=== PATIENT | female | born 1990 | race African-American/Black ===

== ENCOUNTER 2017-12-17 15:44 | Emergency (ER) | payer SELFPAY ==
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
[2017-12-17] MEDS ORDERED: NS 0.9% 1000 ML* 1,000 ML IV ONE (17:31)
[2017-12-17] MEDS ORDERED: PROCHLORPERAZINE INJ 5 MG/ML 2 ML VIAL IV PRN (17:31)
[2017-12-17] MEDS ORDERED: diPHENhydraMINE IV* 25 MG in NS 0.9% 50 ML* 50 ML IVPB ONE (17:31)
[2017-12-17] MEDS ORDERED: Ketorolac INJ* 30 MG/ML 1 ML VIAL IV PUSH ONE (17:32)
[2017-12-17] MEDS ORDERED: Dexamethasone IV* 4 MG/ML 1 ML (4 MG) IV SLOW PU ONE (17:33)
--- NOTE | 2017-12-17 18:27 | RAD ---
EXAM: CT Head Without Intravenous Contrast CLINICAL HISTORY: 27 years old, female; Pain; Headache; Headache not specified TECHNIQUE: Axial computed tomography images of the head/brain without intravenous contrast. All CT scans at this facility use at least one of these dose optimization techniques: automated exposure control; mA and/or kV adjustment per patient size (includes targeted exams where dose is matched to clinical indication); or iterative reconstruction. COMPARISON: No relevant prior studies available. FINDINGS: Brain: Unremarkable. No hemorrhage. No significant white matter disease. No edema. Ventricles: Unremarkable. No ventriculomegaly. Bones/joints: Unremarkable. No acute fracture. Soft tissues: Unremarkable. Sinuses: Unremarkable as visualized. No acute sinusitis. Mastoid air cells: Unremarkable as visualized. No mastoid effusion. IMPRESSION: No acute intracranial abnormality.
[2017-12-17 19:27] VITALS: BP 134/94
== END 2017-12-17 19:11 | disposition home or self-care (01) ==
LOC: ED 15:44
DX: H53.8 Other visual disturbances (principal); R51 Headache; F17.210 Nicotine dependence, cigarettes, uncomplicated
CPT/HCPCS: 70450; 96374; 96375; 99282

== ENCOUNTER 2019-04-18 15:15 | Emergency (ER) | payer SELFPAY ==
--- NOTE | 2019-04-18 15:50 | ED ---
Complex/Multi-Sys Presentation - HPI Summary HPI Summary: Pt. is a 29 y.o female who presents to the ER for complaints of "electrical storms in my brain." Pt. states she has been having these symptoms x one year. Pt. seen in ED a year ago and had a negative brain CT. Pt. states she has been experiencing episodes where her vision goes black and she feels she is going to pass out. Pt. states she is able to bring herself back by using her healing crystals. Pt. notes intermittent tingling to brain, tongue and hands. Also notes pressure behind her eyes. Pt. notes hx of drug use and pt. believes she used coke 2 months ago. Pt. otherwise denies recent fever, travel, abd. pain, V/ D, urinary sxs. Past hx of depression and was admitted to [facility] in 2012. Pt. currently not taking any rx medications and does not have a PCP. Sxs are moderate in severity. No current modifying factors. - History Of Current Complaint Chief Complaint: EDNeurologicalDeficit Time Seen by Provider: 04/18/19 15:31 Hx Obtained From: Patient - Allergies/Home Medications Allergies/Adverse Reactions: Allergies Allergy/AdvReac Type Severity Reaction Status Date / Time kale Allergy Airway Uncoded 04/18/19 15:29 Obstruction PMH/Surg Hx/FS Hx/Imm Hx Previously Healthy: Yes Cardiovascular History: Denies: Hx Congestive Heart Failure Respiratory History: Denies: Hx Chronic Obstructive Pulmonary Disease (COPD) Psychiatric History: Reports: Hx Anxiety, Hx Depression Denies: Hx Eating Disorder, Hx of Violent Episodes Against Others Infectious Disease History: No Infectious Disease History: Denies: Traveled Outside the [place] in Last 30 Days - Family History Known Family History: Positive: Unknown, Non-Contributory - Social History Occupation: Unemployed Lives: Dormitory/Roommates Alcohol Use: Rare Hx Substance Use: Yes Substance Use Type: Reports: None Smoking Status (MU): Former Smoker Review of Systems Constitutional: Negative Negative: Fever Positive: Blurred Vision ENT: Negative Negative: Sore Throat, Ear Ache, Nasal Discharge Cardiovascular: Negative Negative: Palpitations, Chest Pain Respiratory: Negative Negative: Shortness Of Breath, Cough Gastrointestinal: Negative Negative: Abdominal Pain, Vomiting, Diarrhea Genitourinary: Negative Negative: burning Musculoskeletal: Negative Skin: Negative Positive: Headache, Paresthesia. Negative: Weakness, Numbness, Syncope All Other Systems Reviewed And Are Negative: Yes Physical Exam Triage Information Reviewed: Yes Vital Signs On Initial Exam: Initial Vitals Temp Pulse Resp BP Pulse Ox 99.6 F 92 16 157/98 100 04/18/19 15:23 04/18/19 15:23 04/18/19 15:23 04/18/19 15:23 04/18/19 15:23 Vital Signs Reviewed: Yes Appearance: Positive: Well-Appearing - Pt. sitting up in bed in NAD. Will stop mid sentence and say she is having a brain zap. Friend present. Skin: Positive: Warm, Dry Head/Face: Positive: Normal Head/Face Inspection Eyes: Positive: Normal, EOMI, SOCRATES, Conjunctiva Clear ENT: Positive: Pharynx normal, TMs normal Neck: Positive: Supple, Nontender Respiratory/Lung Sounds: Positive: Clear to Auscultation, Breath Sounds Present Cardiovascular: Positive: Normal, RRR Musculoskeletal: Positive: Normal, Strength/ROM Intact Neurological: Positive: Normal, Sensory/Motor Intact, Alert, Oriented to Person Place, Time, CN Intact II-III, Normal Gait, Finger to Nose - normal, Facial Symmetry, Speech Normal. Negative: Facial Droop, Slurred Speech, Pronator Drift Present Psychiatric: Positive: Anxious Procedures - Sedation Patient Received Moderate/Deep Sedation with Procedure: No Diagnostics - Vital Signs Vital Signs Temp Pulse Resp BP Pulse Ox 04/18/19 15:23 99.6 F 92 16 157/98 100 - Laboratory Result Diagrams: 04/18/19 15:56 04/18/19 15:56 Lab Statement: Any lab studies that have been ordered have been reviewed, and results considered in the medical decision making process. Complex Multi-Symp Course/Dx Course Of Treatment: Pt. with above complaints x 1 year. Pt. has a normal neurological exam without deficits. Afebrile with stable VS. WIll obtain near syncope workup. Case discussed with Dr. Landers. ECG done at 1613 shows a sinus rhythm of 80bpm, normal axis, no STEMI, appropriate intervals. Labs are unremarkable. Will have pt. f.u with the [facility] for neurology referral for further evaluation. Questionable psychiatric component? Pt. denied SI or HI and is safe for dc with her friend. Pt. will return to er if sxs change or worsen. Pt. understands and agrees with plan. - Diagnoses Provider Diagnoses: Paresthesia, Cephalgia, Near syncope Discharge ED - Sign-Out/Discharge Documenting (check all that apply): Patient Departure - Discharge Plan Condition: Good Disposition: HOME Patient Education Materials: Acute Headache (ED), Paresthesia (ED), Near Syncope (ED) Referrals: [facility] [Outside] Mario Salazar MD [Medical Doctor] - Additional Instructions: Call the [facility] on Saturday for a close follow up appointment and for neurology referral Return to ER if symptoms change or worsen - Billing Disposition and Condition Condition: GOOD Disposition: Home - Attestation Statements Provider Attestation: I was available for consult. This patient was seen by the I[facility]. The patient was not presented to, seen by, or examined by me. Ivan Landers MD
[2019-04-18 16:14] LABS: ABS Eosinophils 0.3 10^3/ul (0-0.6); ABS Lymphocytes 2.5 10^3/ul (1.0-4.8); ABS Monocytes 0.5 10^3/ul (0-0.8); ABS Neutrophils 4.6 10^3/ul (1.5-7.7); Eosinophil % 4.2 %; Hematocrit 35 % (35-47); Lymphocyte % 31.3 %; Mean Corpuscular HGB Conc 34 g/dL (31-36); Mean Corpuscular Hemoglobin 30 pg (27-31); Mean Corpuscular Volume 89 fL (80-97); Mean Platelet Volume 7.3 fL (7.4-10.4); Platelet Count 312 10^3/uL (150-450); Red Blood Count 3.99 10^6 /uL (3.70-4.87); Red Cell Distribution Width 13 % (10-15); White Blood Count 8.4 10^3/uL (3.5-10.8)
[2019-04-18] MEDS ORDERED: Ibuprofen TAB* 800 MG PO ONE (16:58)
[2019-04-18 17:03] LABS: Urine Appearance Cloudy; Urine Bilirubin Negative (Negative); Urine Blood Negative (Negative); Urine Color Yellow; Urine Glucose Negative (Negative); Urine Ketones Negative (Negative); Urine Nitrite Negative (Negative); Urine Protein Negative (Negative); Urine Urobilinogen Negative (Negative)
[2019-04-18 17:09] LABS: ALT 16 U/L (7-52); AST 17 U/L (13-39); Albumin 4.6 g/dL (3.2-5.2); Albumin/Globulin Ratio 1.6 (1-3); Alkaline Phosphatase 85 U/L (34-104); Anion Gap 7 mmol/L (2-11); BUN/Creatinine Ratio 12.8 (8-20); Blood Urea Nitrogen 10 mg/dL (6-24); C Reactive Protein 3.44 mg/L (<8.01); CO2 Carbon Dioxide 27 mmol/L (22-32); Chloride 104 mmol/L (101-111); EGFR African American 105.7 (>60); EGFR Non-African American 87.3 (>60); Globulin 2.9 g/dL (2-4); Glucose 88 mg/dL (70-100); Potassium 3.9 mmol/L (3.5-5.0); Sodium 138 mmol/L (135-145); Total Protein 7.5 g/dL (6.4-8.9)
[2019-04-18 17:15] LABS: HCG Pregnancy < 0.60 mIU/mL
[2019-04-18 17:24] LABS: Urine Benzodiazepine Screen None Detected (None Detect); Urine Opiates Screen None Detected (None Detect)
[2019-04-18 17:28] LABS: TSH (Thyroid Stimulating Horm) 1.37 mcIU/mL (0.34-5.60)
[2019-04-18 17:43] VITALS: BP 143/95
== END 2019-04-18 17:41 | disposition home or self-care (01) ==
LOC: ED 15:15
DX: R20.2 Paresthesia of skin (principal); M54.2 Cervicalgia; R55 Syncope and collapse; Z87.891 Personal history of nicotine dependence; F41.9 Anxiety disorder, unspecified; F32.9 Major depressive disorder, single episode, unspecified
CPT/HCPCS: 36415; 80053; 80307; 81003; 84443; 84702; 85025; 86140; 93005; 99282

== ENCOUNTER 2019-04-30 11:48 | Emergency (ER) | payer SELFPAY ==
--- OUTSIDE RECORDS SUMMARY | 2019-04-30 12:11 | XMS REPORT | Continuity of Care Document ---
:1990 External Reference #:[id number] Author Name Marcelino Yee M.D. (transmitted by agent of provider Jayshree Almodovar) Address [address], [place] [address] Problems Active Problems Provider Date Altered mental status Marcelino Yee M.D. Onset: 04/23/2019 Headache Marcelino Yee M.D. Onset: 04/23/2019 Skin sensation disturbance Marcelino Yee M.D. Onset: 04/23/2019 Social History Type Date Description Comments Sex Unknown Tobacco Use Start: Unknown End: Former Cigarette Smoker Unknown Smoking Status Reviewed: 04/23/19 Former Cigarette Smoker ETOH Use Rarely consumes alcohol Tobacco Use Start: Unknown End: Patient is a former smoker Unknown Recreational Drug Use Former Drug User Exercise Type/Frequency Does not exercise Allergies, Adverse Reactions, Alerts Description No Known Drug Allergies Medications Description No Active Medications Immunizations Description No Information Available Vital Signs Date Vital Result Comment 04/23/2019 10:04am Height 65 inches 5'5" Weight 180.00 lb Heart Rate 82 /min BP Systolic 104 mmHg BP Diastolic 82 mmHg BMI (Body Mass Index) 30.0 kg/m2 Results Description No Information Available Procedures Description No Information Available Medical Devices Description No Information Available Encounters Type Date Location Provider Dx Diagnosis Office Visit 04/23/2019 [facility] Marcelino Yee, R20.2 Paresthesia of 10:[facility] R51 Headache R41.82 Altered mental status, unspecified Assessments Date Code Description Provider 04/23/2019 R20.2 Paresthesia of skin Marcelino Yee M.D. 04/23/2019 R51 Headache Marcelino Yee M.D. 04/23/2019 R41.82 Altered mental status, unspecified Marcelino Yee M.D. Plan of Treatment Future Appointment(s):07/16/2019 9:15 am - Marcelino Yee M.D. at [id number]/23/2019 - Marcelino Yee M.D.R20.2 Paresthesia of skinFollow up:Follow up in 12 weeksRecommendations:Call me after the MRI and EEG and we will discuss next [id number] HeadacheNew Xrays:MRI Brain W/O, Ordered: 04/23/19R41.82 Altered mental status, unspecifiedNew Orders:EEG, Routine, Ordered: 04/23/19 Functional Status Description No Information Available Mental Status Description No Information Available Referrals Description No Information Available
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
[2019-04-30] MEDS: Ibuprofen TAB* 400 MG PO ONE (16:06)
[2019-04-30 17:38] VITALS: BP 133/80
== END 2019-04-30 16:06 | disposition home or self-care (01) ==
LOC: ED 11:48
DX: M25.551 Pain in right hip (principal); R51 Headache; V03.90XA Pedestrian on foot injured in collision with car, pick-up truck or van, unspecified whether traffic or nontraffic accident, initial encounter; Y92.9 Unspecified place or not applicable; F41.9 Anxiety disorder, unspecified; F32.9 Major depressive disorder, single episode, unspecified; Z87.891 Personal history of nicotine dependence
CPT/HCPCS: 36415; 70450; 72125; 84702; 99282; A9270-GY

== ENCOUNTER 2019-05-28 14:19 | Inpatient (IN) | payer SELFPAY ==
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
[2019-05-28 17:23] LABS: ABS Basophils 0.1 10^3/ul (0-0.2); ABS Lymphocytes 2.9 10^3/ul (1.0-4.8); ABS Monocytes 1.4 10^3/ul (0-0.8); ABS Neutrophils 11.4 10^3/ul (1.5-7.7); Eosinophil % 0.2 %; Hematocrit 33 % (35-47); Hemoglobin 11.3 g/dL (12.0-16.0); Lymphocyte % 18.2 %; Mean Corpuscular HGB Conc 34 g/dL (31-36); Mean Corpuscular Hemoglobin 30 pg (27-31); Mean Corpuscular Volume 87 fL (80-97); Mean Platelet Volume 7.2 fL (7.4-10.4); Platelet Count 320 10^3/uL (150-450); Red Cell Distribution Width 13 % (10-15); White Blood Count 15.7 10^3/uL (3.5-10.8)
[2019-05-28 17:38] LABS: ALT 26 U/L (7-52); AST 85 U/L (13-39); Albumin 4.5 g/dL (3.2-5.2); Albumin/Globulin Ratio 1.7 (1-3); Alkaline Phosphatase 80 U/L (34-104); Anion Gap 11 mmol/L (2-11); BUN/Creatinine Ratio 13.9 (8-20); Blood Urea Nitrogen 10 mg/dL (6-24); CO2 Carbon Dioxide 20 mmol/L (22-32); Calcium 9.9 mg/dL (8.6-10.3); Chloride 108 mmol/L (101-111); EGFR African American 115.9 (>60); EGFR Non-African American 95.8 (>60); Globulin 2.7 g/dL (2-4); Glucose 104 mg/dL (70-100); Magnesium 1.8 mg/dL (1.9-2.7); Potassium 3.8 mmol/L (3.5-5.0); Sodium 139 mmol/L (135-145); Total Protein 7.2 g/dL (6.4-8.9)
[2019-05-28 17:43] LABS: Troponin I 0.56 ng/mL (<0.03)
[2019-05-28] MEDS ORDERED: NS 0.9% IV ONE (18:06)
[2019-05-28] MEDS ORDERED: Piperacillin/Tazobac ADVAN(*) 3.375 GM in NS 0.9% 100 ML* 100 ML IVPB ONE (18:08)
[2019-05-28] MEDS ORDERED: Vancomycin(*) 1,500 MG in NS 0.9% 250 ML* 250 ML IVPB ONE (18:08)
[2019-05-28] MEDS ORDERED: Aspirin 81 mg CHEW TAB* 81 MG TAB.CHEW PO ONE ×2 (18:17→18:20)
[2019-05-28 18:18] LABS: Influenza A Molecular Negative (Negative); Influenza B Molecular Negative (Negative)
[2019-05-28] MEDS ORDERED: Iohexol 350* (CONTRAST) 500 ML MDV IV ONE (18:33)
[2019-05-28 18:37] LABS: C Reactive Protein 30.65 mg/L (<8.01)
[2019-05-28] MEDS: NS 0.9% 1000 ML** 2,000 ML IV ONE ×2 (18:51→19:43)
[2019-05-28] MEDS ORDERED: Aspirin EC TAB* 325 MG PO ONE (19:00)
[2019-05-28] MEDS ORDERED: Aspirin TAB* 325 MG PO ONE (19:00)
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
[2019-05-28] MEDS ORDERED: Magnesium CITRATE* 300 ML BTL PO ONE (19:50)
[2019-05-28] MEDS ORDERED: Enoxaparin(*) 40 MG/0.4 ML SYR SUBCUT SCH (20:00)
[2019-05-28 20:23] LABS: Urine Appearance Clear; Urine Bilirubin Negative (Negative); Urine Blood 3+ (Negative); Urine Color Yellow; Urine Glucose Negative (Negative); Urine Ketones Negative (Negative); Urine Nitrite Negative (Negative); Urine Protein Negative (Negative); Urine Specific Gravity 1.026 (1.010-1.030); Urine Urobilinogen Negative (Negative)
[2019-05-28 20:26] LABS: Urine Bacteria Absent (Absent); Urine Red Blood Cell Trace(0-2/hpf) (Absent); Urine Squamous Epithelial Cell Present (Absent); Urine White Blood Cell Trace(0-5/hpf) (Absent)
[2019-05-28 23:44] LABS: Troponin I 0.35 ng/mL (<0.03)
[2019-05-29] MEDS ORDERED: NS 0.9% 1000 ML** 1,000 ML IV SCH (04:00)
[2019-05-29 05:31] LABS: ABS Eosinophils 0.3 10^3/ul (0-0.6); ABS Monocytes 0.8 10^3/ul (0-0.8); ABS Neutrophils 6.1 10^3/ul (1.5-7.7); Eosinophil % 2.9 %; Hematocrit 30 % (35-47); Hemoglobin 10.5 g/dL (12.0-16.0); Lymphocyte % 29.8 %; Mean Corpuscular HGB Conc 35 g/dL (31-36); Mean Corpuscular Hemoglobin 31 pg (27-31); Mean Corpuscular Volume 89 fL (80-97); Mean Platelet Volume 7.1 fL (7.4-10.4); Platelet Count 256 10^3/uL (150-450); Red Blood Count 3.34 10^6 /uL (3.70-4.87); Red Cell Distribution Width 14 % (10-15); White Blood Count 10.2 10^3/uL (3.5-10.8)
[2019-05-29 05:42] LABS: Calcium 8.6 mg/dL (8.6-10.3); Potassium 3.8 mmol/L (3.5-5.0)
[2019-05-29 05:47] LABS: BUN/Creatinine Ratio 14.3 (8-20); EGFR African American 135.2 (>60); EGFR Non-African American 111.7 (>60)
[2019-05-29] MEDS: Aspirin TAB* 325 MG PO SCH ×3 (05:47→14:14)
--- NOTE | 2019-05-29 08:59 | ECHO ---
*[facility]* [place] [address] Fax #: [phone] Transthoracic Echocardiogram Patient: Jessica Tsai : 1990 Study Date: 05/29/2019 Age: 29 Gender: F HR: 85 bpm Height: 66 in /167.6 cm BSA: 2 m^2 Weight: 184.6 lb /83.9 kg BMI: 29.9 kg/m^2 *Graphics Intern: Luisa De Luna *Referring Physician: * Haily OnealReading Physician: * Milo Toledo MD Indications: Syncope. History: Chest pain. Syncope. Pericardial disease. Risk factors: Drug abuse. Former tobacco use. Conclusions Summary: - Left ventricle: The cavity size is normal. Wall thickness is normal. Systolic function is normal. The estimated ejection fraction is 60-65%. Wall motion is normal; there are no regional wall motion abnormalities. - Right ventricle: The cavity size is normal. Systolic function is normal. - Left atrium: The atrium is normal in size. - Pericardium, extracardiac: There is no significant pericardial effusion. - Pulmonary arteries: Systolic pressure is within the normal range, estimated to be 25 mm Hg. - No significant valvular abnormalities noted. Recommendations: None prior for comparison at time of interpretation Study data: Transthoracic echocardiogram. Procedure: Transthoracic echocardiography was performed. Image quality was good. Complete 2D, spectral Doppler, and color flow Doppler. Location: Bedside. Patient status: Inpatient. Patient room number: 453. Findings Left ventricle: The cavity size is normal. Wall thickness is normal. Systolic function is normal. The estimated ejection fraction is 60-65%. Wall motion is normal; there are no regional wall motion abnormalities. Left ventricular diastolic function parameters are normal. Right ventricle: The cavity size is normal. Systolic function is normal. Ventricular septum: The ventricular septum is normal. Left atrium: The atrium is normal in size. Right atrium: The atrium is normal in size. Mitral valve: The valve is structurally normal. There is no evidence of stenosis. There is trace regurgitation. Aortic valve: The valve is trileaflet. The leaflets are normal thickness. There is no evidence of stenosis. There is no significant regurgitation. Tricuspid valve: The valve is structurally normal. There is no evidence of stenosis. There is trace to mild regurgitation. Pulmonic valve: The valve is structurally normal. There is no evidence of stenosis. There is mild regurgitation. Aorta: The aortic root appears normal. The aortic arch appears normal. Pericardium: There is no significant pericardial effusion. Pulmonary arteries: Systolic pressure is within the normal range, estimated to be 25 mm Hg. Systemic veins: Inferior vena cava: The vessel is normal in size. There is (>= 50%) respiratory change in the IVC dimension. Pulmonary veins: The Pulmonary veins appear normal. Measurements Left ventricle Value Ref Aortic valve Value Ref VINAYAK, LAX 3.8 cm 3.8 - 5.2 Peak v, S 1.69 m/sec ----- ESD, LAX 2.6 cm 2.2 - 3.5 VTI, S 36.1 cm ----- FS, LAX 32 % 45 Mean grad, S 5.9 mm Hg ----- PW, ED, LAX (H) 1.0 cm 0.6 - 0.9 Peak grad, S 11.5 mm Hg ----- FS 32 % 45 LVOT/AV, VTI ratio 0.59 ----- Mid-wall FS 11 % --------- COTY, VTI 1.81 cm^2 ----- PW, ED (H) 1.0 cm 0.6 - 0.9 COTY, Vmax 2.08 cm^2 ----- PW/ID, ED 0.26 --------- E', lat [place], TDI 15.8 cm/sec >=10.0 Mitral valve Value Re f E/e', lat [place], TDI 7 --------- Peak E 1.14 m/sec ----- Peak A 0.55 m/sec ----- LVOT Value Ref Decel time 179 ms ----- Diam, S 1.97 cm --------- Peak grad, D 5.2 mm Hg ----- Area 3.0 cm^2 --------- Peak E/A ratio 2.06 ----- Peak joshua, S 1.15 m/sec --------- VTI, S 21.4 cm --------- Pulmonic valve Value Ref Peak grad, S 5 mm Hg --------- Peak v, S 0.72 m/sec ----- Peak grad, S 2.1 mm Hg ----- Ventricular septum Value Ref IVS, ED (H) 1.4 cm 0.6 - 0.9 Tricuspid valve Value Ref TR peak v 2.22 m/sec <=2.8 Right ventricle Value Ref Peak RV-RA grad, S 20 mm Hg ----- VINAYAK, LAX 3.4 cm --------- VINAYAK major ax, A4C (L) 3.7 cm 5.9 - 8.3 Aortic root Value Ref Root diam 2.8 cm <3.7 Left atrium Value Ref LA ID 3.1 cm --------- Ascending aorta Value Ref SI dim ES, LAX 3.1 cm --------- AAo AP diam, S 2.7 cm ----- ML dim, A4C 4.2 cm --------- SI dim, A4C 5.3 cm --------- Aortic arch Value Ref Vol, ES, 2-p 57 ml --------- Arch diam 2.3 cm ----- Vol/bsa, ES, 2-p 29 ml/m^2 16 - 34 Decending aorta Value Ref Right atrium Value Ref Bob peak joshua 1.04 m/sec ----- SI dim, ES 4.8 cm 3.4 - 5.3 ML dim, ES, A4C 2.6 cm 2.6 - 4.4 Inferior vena cava Value Ref SI dim, ES, A4C 4.8 cm 3.4 - 5.3 Diam 2.0 cm ----- Legend: (L) and (H) torie values outside specified reference range. Prepared and electronically signed by Milo Toledo MD 05/29/2019 08:59
[2019-05-29] MEDS ORDERED: Colchicine* 0.6 MG TAB PO SCH (09:00)
[2019-05-29] MEDS ORDERED: Pantoprazole TAB * 40 MG TAB PO SCH ×2 (09:00)
[2019-05-29 14:55] VITALS: BP 160/53
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
== END 2019-05-29 15:45 | disposition home or self-care (01) | DRG 316 ==
LOC: ED 14:19 → MEDTELE 19:28
PROVIDERS: ADMIT Student in an Organized Health Care Education/Training Program; ATTEND Internal Medicine
DX: I30.1 Infective pericarditis (principal); J45.909 Unspecified asthma, uncomplicated; R51 Headache; B97.89 Other viral agents as the cause of diseases classified elsewhere; F41.9 Anxiety disorder, unspecified; F32.9 Major depressive disorder, single episode, unspecified; Z87.891 Personal history of nicotine dependence
CPT/HCPCS: 36415; 71045; 71275; 80048; 80053; 81003; 81015; 83605; 83735; 84443; 84484; 85025; 86140; 87040; 87086; 93005; 93306; 99284; A9270-GY; J1650; J2543; J3370

== ENCOUNTER 2019-06-02 17:28 | Emergency (ER) | payer SELFPAY ==
[2019-06-02 21:47] LABS: ABS Basophils 0.1 10^3/ul (0-0.2); ABS Eosinophils 0.3 10^3/ul (0-0.6); ABS Lymphocytes 2.8 10^3/ul (1.0-4.8); ABS Monocytes 0.3 10^3/ul (0-0.8); ABS Neutrophils 4.4 10^3/ul (1.5-7.7); Eosinophil % 3.8 %; Hematocrit 37 % (35-47); Hemoglobin 12.7 g/dL (12.0-16.0); Lymphocyte % 35.8 %; Mean Corpuscular HGB Conc 34 g/dL (31-36); Mean Corpuscular Hemoglobin 31 pg (27-31); Mean Corpuscular Volume 89 fL (80-97); Nucleated Red Blood Cells % 0.2; Platelet Count 379 10^3/uL (150-450); Red Blood Count 4.17 10^6 /uL (3.70-4.87); Red Cell Distribution Width 14 % (10-15)
[2019-06-02 22:04] LABS: Albumin 4.5 g/dL (3.2-5.2); Albumin/Globulin Ratio 1.4 (1-3); Calcium 10.5 mg/dL (8.6-10.3); EGFR African American 110.5 (>60); EGFR Non-African American 91.4 (>60); Globulin 3.2 g/dL (2-4); Potassium 3.8 mmol/L (3.5-5.0); Total Bilirubin 0.4 mg/dL (0.2-1.0); Total Protein 7.7 g/dL (6.4-8.9)
[2019-06-02 22:09] LABS: INR 0.97 (0.82-1.09)
--- NOTE | 2019-06-02 22:47 | ED ---
HPI Chest Pain - HPI Summary HPI Summary: 29 year old F presenting to [facility] complains of chest pain, light headedness, hot flashes that started today. Patient seen in the ED on 05/28/2019, and was diagnosed with myopericarditis and admitted. Patient was discharged on 2019. She states that she has since felt weak and been lying around in her house. She states she has symptoms when she stands up. She states that her symptoms started to get worse yesterday 06/01/2019 and she almost came to the ED but didn't. She states that today 06/02/2019 she woke up and made breakfast. She was lying on the couch when she developed tachycardia and felt a wave of heat that "narrowed my world down" which occurred around 1630 today 06/02/2019. Her friend drove her to the ED. Patient states her symptoms improved around 1730 while in the waiting room. She describes chest pain as stingy and popping and "gurgling" currently. No shortness of breath, abdominal pain, nausea/vomiting. The patient rates the pain 8/10 in severity initially. Symptoms aggravated by standing up. Symptoms alleviated by nothing. Medications reviewed. She has appointment on 06/10/[address] Rashid. - History of Current Complaint Chief Complaint: EDChestPainROMI Time Seen by Provider: 06/02/19 22:40 Hx Obtained From: Patient Onset/Duration: Started Days Ago, Still Present, Worse Since - 1630 today 2019 Timing: Constant Initial Severity: Severe Pain Intensity: 8 Pain Scale Used: 0-10 Numeric Character: Other: - stingy and popping and "gurgling" Aggravating Factor(s): Other: - standing up Alleviating Factor(s): Nothing Associated Signs and Symptoms: Positive: Negative - shortness of breath, abdominal pain, nausea/vomiting, Lightheadedness, Other: - hot flashes - Allergy/Home Medications Allergies/Adverse Reactions: Allergies Allergy/AdvReac Type Severity Reaction Status Date / Time No Known Allergies Allergy Verified 05/28/19 14:30 PMH/Surg Hx/FS Hx/Imm Hx Endocrine/Hematology History: Denies: Hx Diabetes Cardiovascular History: Denies: Hx Congestive Heart Failure, Hx Hypertension, Hx Peripheral Vascular Disease Respiratory History: Reports: Hx Asthma Denies: Hx Chronic Obstructive Pulmonary Disease (COPD) Musculoskeletal History: Denies: Hx Arthritis, Hx Osteoporosis Sensory History: Denies: Hx Cataracts, Hx Contacts or Glasses, Hx Glaucoma, Hx Hearing Aid Opthamlomology History: Denies: Hx Cataracts, Hx Contacts or Glasses, Hx Glaucoma Neurological History: Denies: Hx Headaches, Hx Seizures, Hx Transient Ischemic Attacks (TIA) Psychiatric History: Reports: Hx Anxiety, Hx Depression, Hx Substance Abuse Denies: Hx Eating Disorder, Hx of Violent Episodes Against Others Infectious Disease History: No Infectious Disease History: Denies: Traveled Outside the [place] in Last 30 Days - Family History Known Family History: Positive: Other - NEG: psychiatric issues - Social History Alcohol Use: Rare Hx Substance Use: Yes Substance Use Type: Reports: Cocaine, Marijuana Substance Use Comment - Amount & Last Used: LSD, shroom - used in the last month Hx Tobacco Use: Yes Smoking Status (MU): Former Smoker Type: Cigarettes Review of Systems Positive: Other - hot flahses Positive: Chest Pain Negative: Shortness Of Breath Negative: Abdominal Pain, Vomiting, Nausea Neurological: Other - light headedness All Other Systems Reviewed And Are Negative: Yes Physical Exam - Summary Physical Exam Summary: Appearance: Well-appearing, Well-nourished, lying in bed comfortably Skin: Warm, dry, no obvious rash Eyes: sclera anicteric, no conjunctival pallor ENT: mucous membranes moist, pharynx appears normal Neck: Supple, nontender Respiratory: Clear to auscultation, no signs of respiratory distress Cardiovascular: Normal S1, S2. No murmurs. Normal distal pulses in tibial and radial bilaterally. Abdomen: Soft, nontender, normal active bowel sounds present Musculoskeletal: Normal, Strength/ROM Intact Neurological: A&Ox3, awake and alert, mentation is normal, speech is fluent and appropriate Psychiatric: affect is normal, does not appear anxious or depressed Triage Information Reviewed: Yes Vital Signs On Initial Exam: Initial Vitals Temp Pulse Resp BP Pulse Ox 98.8 F 86 18 151/102 100 06/02/19 17:37 06/02/19 17:37 06/02/19 17:37 06/02/19 17:37 06/02/19 17:37 Vital Signs Reviewed: Yes Procedures - Sedation Patient Received Moderate/Deep Sedation with Procedure: No Diagnostics - Vital Signs Vital Signs Temp Pulse Resp BP Pulse Ox 06/02/19 21:55 98.1 F 81 18 142/100 98 06/02/19 19:31 98.5 F 79 18 142/108 100 06/02/19 17:37 98.8 F 86 18 151/102 100 - Laboratory Lab Results: Lab Results 06/02/19 06/02/19 06/02/19 Range/Units 21:39 21:39 21:39 WBC 8.0 (3.5-10.8) 10^3/uL RBC 4.17 (3.70-4.87) 10^6 /uL Hgb 12.7 (12.0-16.0) g/dL Hct 37 (35-47) % MCV 89 (80-97) fL MCH 31 (27-31) pg MCHC 34 (31-36) g/dL RDW 14 (10-15) % Plt Count 379 (150-450) 10^3/uL MPV 7.0 L (7.4-10.4) fL Neut % (Auto) 55.6 % Lymph % (Auto) 35.8 % [place] % (Auto) 3.9 % Eos % (Auto) 3.8 % Baso % (Auto) 0.9 % Absolute Neuts (auto) 4.4 (1.5-7.7) 10^3/ul Absolute Lymphs (auto) 2.8 (1.0-4.8) 10^3/ul Absolute Monos (auto) 0.3 (0-0.8) 10^3/ul Absolute Eos (auto) 0.3 (0-0.6) 10^3/ul Absolute Basos (auto) 0.1 (0-0.2) 10^3/ul Absolute Nucleated RBC 0.0 10^3/ul Nucleated RBC % 0.2 INR (Anticoag Therapy) 0.97 (0.82-1.09) Sodium 137 (135-145) mmol/L Potassium 3.8 (3.5-5.0) mmol/L Chloride 101 (101-111) mmol/L Carbon Dioxide 27 (22-32) mmol/L Anion Gap 9 (2-11) mmol/L BUN 15 (6-24) mg/dL Creatinine 0.75 (0.51-0.95) mg/dL Est GFR ( Amer) 110.5 (>60) Est GFR (Non-Af Amer) 91.4 (>60) BUN/Creatinine Ratio 20.0 (8-20) Glucose 107 H (70-100) mg/dL Calcium 10.5 H (8.6-10.3) mg/dL Total Bilirubin 0.40 (0.2-1.0) mg/dL AST 25 (13-39) U/L ALT 53 H (7-52) U/L Alkaline Phosphatase 87 (34-104) U/L Troponin I 0.00 (<0.03) ng/mL Total Protein 7.7 (6.4-8.9) g/dL Albumin 4.5 (3.2-5.2) g/dL Globulin 3.2 (2-4) g/dL Albumin/Globulin Ratio 1.4 (1-3) Result Diagrams: 06/02/19 21:39 06/02/19 21:39 Lab Statement: Any lab studies that have been ordered have been reviewed, and results considered in the medical decision making process. - EKG 1731 Cardiac Rate: NL - 83 BPM EKG Rhythm: Sinus Rhythm Summary of EKG Findings: Normal sinus rhythm 83 BPM. ED PHYSICIAN HAS REVIEWED AND INTERPRETED THIS EKG Chest Pain Course/Dx - Course Course Of Treatment: 29 y/o woman with recent h/o mild myopericarditis characterized by EKG abnormalities and mild elevations of troponin. Has been quite fatigued since discharge, resting at home for the most part but eating ok and not having any SOB or chest pain. Returns today for an episode of near syncope. This persisted for perhaps 30-60 minutes but has since resolved. Repeat EKG and troponins are improved compared to last week, trop is 0.00. She sounds as though she is still convalescing from a viral process that involved her heart/pericardium, though no sign of recurrence of that latter issue. Stable for discharge at this time, has f/u arranged at [facility]. - Diagnoses Provider Diagnoses: Viral syndrome, Near syncope Discharge ED - Sign-Out/Discharge Documenting (check all that apply): Patient Departure - Discharge Plan Condition: Good Disposition: HOME Patient Education Materials: Near Syncope (ED) Referrals: [facility] [Outside] (as scheduled) - Billing Disposition and Condition Condition: GOOD Disposition: Home - Attestation Statements Document Initiated by Scribe: Yes Documenting Scribe: Amparo Roberts Provider For Whom Scribe is Documenting (Include Credential): Frank Rome MD Scribe Attestation: I, Amparo Roberts, scribed for Frank Rome MD on 06/03/19 at 0537. Scribe Documentation Reviewed: Yes Provider Attestation: The documentation as recorded by the scribe, Amparo Roberts accurately reflects the service I personally performed and the decisions made by me, Frank Rome MD Status of Scribe Document: Viewed
[2019-06-02 23:04] VITALS: BP 146/105
== END 2019-06-02 23:02 | disposition home or self-care (01) ==
LOC: ED 17:28
DX: B34.9 Viral infection, unspecified (principal); R55 Syncope and collapse; Z79.82 Long term (current) use of aspirin; Z87.891 Personal history of nicotine dependence
CPT/HCPCS: 36415; 80053; 84484; 85025; 85610; 93005; 99283

== ENCOUNTER 2019-06-11 18:00 | Emergency (ER) | payer SELFPAY ==
[2019-06-11 18:07] VITALS: BP 128/85
--- OUTSIDE RECORDS SUMMARY | 2019-06-11 18:24 | XMS REPORT | Continuity of Care Document ---
:1990 External Reference #:[id number] Author Name Pio Rashid MD (transmitted by agent of provider Abril Wray) Address [address] [place] [address] [place] [address] Care Team Providers Name Role Phone Unavailable Care Team Information Grants Manager Unavailable Pio Rashid MD - Hospitalist Care Team Information Grants Manager [phone] Problems Active Problems Provider Date Altered mental status Marcelino Yee M.D. Onset: 04/23/2019 Headache Marcelino Yee M.D. Onset: 04/23/2019 Skin sensation disturbance Marcelino Yee M.D. Onset: 04/23/2019 Social History Type Date Description Comments Sex Unknown Tobacco Use Start: Unknown End: Former Cigarette Smoker Unknown Smoking Status Reviewed: 06/10/19 Former Cigarette Smoker ETOH Use Rarely consumes alcohol Tobacco Use Start: Unknown End: Patient is a former smoker Unknown Recreational Drug Use Former Drug User Exercise Type/Frequency Does not exercise Allergies, Adverse Reactions, Alerts Description No Known Drug Allergies Medications Active Medications SIG Qnty Indications Ordering Provider Date Aspirin Adult take one tab Unknown 325mg twice a day for Tablets 2 weeks Colchicine 1 by mouth Unknown 0.6mg Tablets twice a day X 28 days Pantoprazole Sodium 1 by mouth 90tabs Unknown 40mg twice a day X Tablets DR 28 days History Medications No Active Medications Unknown 04/23/2019 - 06/09/2019 Immunizations Description No Information Available Vital Signs Date Vital Result Comment 06/10/2019 1:04pm Height 65 inches 5'5" Weight 184.00 lb Heart Rate 98 /min BP Systolic Sitting 116 mmHg BP Diastolic Sitting 80 mmHg Body Temperature 97.7 F O2 % BldC Oximetry 98 % BMI (Body Mass Index) 30.6 kg/m2 04/23/2019 10:04am Height 65 inches 5'5" Weight 180.00 lb Heart Rate 82 /min BP Systolic 104 mmHg BP Diastolic 82 mmHg BMI (Body Mass Index) 30.0 kg/m2 Procedures Date Code Description Status 05/29/2019 49360 ECHO Transthorasic Realtime 2D W Doppler & Color Flow Hosp Completed Medical Devices Description No Information Available Encounters Type Date Location Provider Dx Diagnosis Office Visit 05/29/2019 [facility] Erin Haskins MD I51.4 Myocarditis, 10:10a [facility] Hospitalists unspecified R51 Headache J45.909 Unspecified asthma, uncomplicated Office Visit 05/28/2019 [facility] Reina Pozo I31.9 Disease of 10:10a Assoc,livan Ball.Shin pericardium, Hospitalists unspecified Office Visit 04/23/2019 [facility] Marcelino R20.2 Paresthesia of 10:00a Services Of Gloria Yee M.D. skin R51 Headache R41.82 Altered mental status, unspecified Assessments Date Code Description Provider 06/10/2019 I30.9 Acute pericarditis, unspecified Pio Rashid MD 06/10/2019 R20.0 Anesthesia of skin Pio Rashid MD 06/10/2019 R35.1 Nocturia Pio Rashid MD 06/10/2019 Z13.1 Encounter for screening for diabetes Pio Rashid MD mellitus 06/10/2019 R42 Dizziness and giddiness Pio Rashid MD 05/29/2019 R55 Syncope and collapse Milo [place], DO [facility] 05/29/2019 I51.4 Myocarditis, unspecified Erin Haskins MD 05/29/2019 R51 Headache Erin Haskins MD 05/29/2019 J45.909 Unspecified asthma, uncomplicated Erin Haskins MD 05/28/2019 I31.9 Disease of pericardium, unspecified Reina Pozo M.D. 04/23/2019 R20.2 Paresthesia of skin Marcelino Yee M.D. 04/23/2019 R51 Headache Marcelino Yee M.D. 04/23/2019 R41.82 Altered mental status, unspecified Marcelino Yee M.D. Plan of Treatment Future Appointment(s):07/16/2019 9:15 am - Marcelino Yee M.D. at [facility]/10/2019 - Pio Rashid MDI30.9 Acute pericarditis, unspecifiedReferral:Tanya Gibbs MD, Cardi[facility]sclr WzssrgfI46.0 Anesthesia of skinComments:restart your vitamin D.R35.1 QegpeomoP43.1 Encounter for screening for diabetes rvrwofaxP07 Dizziness and giddinessComments:Likely related to both your concussion and the pericarditis. Functional Status Description No Information Available Mental Status Description No Information Available Referrals Refer to Reason for Referral Status Appt Date Tanya Gibbs MD pericarditis, pre-syncopal Created [address] [place] [address] [phone]
== END 2019-06-11 19:18 | disposition left against medical advice (07) ==
LOC: ED 18:00
DX: R51 Headache (principal); R29.898 Other symptoms and signs involving the musculoskeletal system; R53.83 Other fatigue; Z53.21 Procedure and treatment not carried out due to patient leaving prior to being seen by health care provider
CPT/HCPCS: 99281

== ENCOUNTER 2019-06-14 02:31 | Emergency (ER) | payer SELFPAY ==
--- NOTE | 2019-06-14 02:41 | ED ---
HPI Chest Pain - HPI Summary HPI Summary: 29 year old female presents to the ED with a chief complaint of "popping" in her head accompanied by chest pain starting again this evening. Patient was diagnosed with pericarditis on 05/28/19. She intermittently gets hot flashes, accompanied by feelings of syncope. Patient occasionally feels a severe pressure and palpitation, during which she must lie down. SOB follows pain. Patient also reports diarrhea which she feels may be due to the medications.. She denies urinary problems, nausea, vomiting, and fever. Patient states she has been seen here multiple times for this and told nothing is wrong. She has been told she has anxiety but she denies this. Patient states the symptoms can started in the evening after she takes her medication. She notes that she is out of her medications at this time that she was supposed to be taking for this. Her last ones today. Pain is intermittent. Last period 2 weeks ago. PSHx on knees. Former smoker. Occasionally drinks alcohol. FHx DM, ID, CVA. Medications reviewed. - Allergy/Home Medications Allergies/Adverse Reactions: Allergies Allergy/AdvReac Type Severity Reaction Status Date / Time No Known Allergies Allergy Verified 05/28/19 14:30 PMH/Surg Hx/FS Hx/Imm Hx Endocrine/Hematology History: Denies: Hx Diabetes Cardiovascular History: Denies: Hx Congestive Heart Failure, Hx Hypertension, Hx Peripheral Vascular Disease Respiratory History: Reports: Hx Asthma Denies: Hx Chronic Obstructive Pulmonary Disease (COPD) Musculoskeletal History: Denies: Hx Arthritis, Hx Osteoporosis Sensory History: Denies: Hx Cataracts, Hx Contacts or Glasses, Hx Glaucoma, Hx Hearing Aid Opthamlomology History: Denies: Hx Cataracts, Hx Contacts or Glasses, Hx Glaucoma Neurological History: Denies: Hx Headaches, Hx Seizures, Hx Transient Ischemic Attacks (TIA) Psychiatric History: Reports: Hx Anxiety, Hx Depression, Hx Substance Abuse Denies: Hx Eating Disorder, Hx of Violent Episodes Against Others - Family History Known Family History: Positive: Unknown, Other - NEG: psychiatric issues, Non- Contributory Negative: Cardiac Disease - Social History Alcohol Use: Rare Hx Substance Use: Yes Substance Use Type: Reports: Cocaine, Marijuana Substance Use Comment - Amount & Last Used: LSD, shroom - used in the last month Hx Tobacco Use: Yes Smoking Status (MU): Former Smoker Type: Cigarettes Review of Systems - ROS Summary Review of Systems Summary: Home Medications Medication Instructions Recorded Confirmed Type Aspirin TAB* [Aspirin 325 MG TAB*] 650 mg PO TID #21 tab 05/29/19 06/06/19 Rx Colchicine* [Colcrys*] 0.6 mg PO BID #28 tab 05/29/19 06/02/19 Rx Pantoprazole TAB * [Protonix TAB*] 40 mg PO BID #28 tab 05/29/19 06/02/19 Rx Negative: Fever, Skin Diaphoresis Positive: Palpitations, Chest Pain Positive: Shortness Of Breath Positive: Diarrhea. Negative: Vomiting, Nausea Positive: no symptoms reported Neurological/Mental Status: Other - "popping in head" Positive: Syncope - feelings of All Other Systems Reviewed And Are Negative: Yes Physical Exam - Summary Physical Exam Summary: General: Elderly female. Known dementia. No acute distress. HEENT: Normocephalic, Atraumatic. Eyes: Conjuctiva normal, PERRL. Ears: TMs within normal limits. Nares: (-) discharge, (-) erythema. Oropharynx: Clear, mucous membranes moist, (-) exudates. Neck: Soft, FROM, (-) lymphadenopathy, (-) thyromegaly, (-) JVD. Cardiovascular: Normal sinus rhythm, (-) murmur. Lungs: Clear to auscultation bilaterally (-) wheezes, (-) rales, (-) rhonchi. Abdomen: Soft, non-tender, non-distended, (-) organomegaly, normal bowel sounds. Back: (-) CVA tenderness Extremities: LLE has swelling and ecchymosis medially. Good cap refill and pulses distally, moderately tender to palpation. No edema. Skin: Warm, dry, (-) rash. Neuro: Alert and oriented x3, no focal deficits. Psychiatric: Mood normal, affect normal, per family. Triage Information Reviewed: Yes Vital Signs Reviewed: Yes Procedures - Sedation Patient Received Moderate/Deep Sedation with Procedure: No Diagnostics - Laboratory Result Diagrams: 06/14/19 02:56 06/14/19 02:56 Lab Statement: Any lab studies that have been ordered have been reviewed, and results considered in the medical decision making process. - Radiology CXR Radiology Interpretation Completed By: ED Physician Summary of Radiographic Findings: No infiltrate or effusion. An ED physician has reviewed and interpreted this report. Pending official scan. - EKG 0233 Cardiac Rate: NL - 79 bpm EKG Rhythm: Sinus Rhythm ST Segment: Normal Ectopy: None Summary of EKG Findings: EKG at 0233 reveals normal sinus rhythm with rate of 79 BPM, no acute changes, no ischemic changes. No STEMI. This EKG was reviewed and interpreted by Dr. Lugo. Chest Pain Course/Dx - Diagnoses Provider Diagnoses: Anxiety, Chest pain Is Visit Related: No Discharge ED - Sign-Out/Discharge Documenting (check all that apply): Patient Departure - discharge home - Discharge Plan Condition: Stable Disposition: HOME Patient Education Materials: Chest Pain (ED) Referrals: [facility] [Outside] Additional Instructions: Follow up with [facility] in 2-3 days. Return to the ED if you experience new or worsened symptoms. - Billing Disposition and Condition Condition: STABLE Disposition: Home - Attestation Statements Document Initiated by Scribe: Yes Documenting Scribe: Joselito Mayers Provider For Whom Scribe is Documenting (Include Credential): Abigail Lugo MD Scribe Attestation: Joselito Oden, scribed for Abigail Lugo MD on 06/14/19 at 0717. Scribe Documentation Reviewed: Yes Provider Attestation: The documentation as recorded by the Joselito watkins accurately reflects the service I personally performed and the decisions made by , Abigail Lugo MD Status of Scribe Document: Viewed
[2019-06-14 03:06] LABS: ABS Basophils 0.1 10^3/ul (0-0.2); ABS Eosinophils 0.3 10^3/ul (0-0.6); ABS Lymphocytes 3.7 10^3/ul (1.0-4.8); ABS Monocytes 0.4 10^3/ul (0-0.8); ABS Neutrophils 3.3 10^3/ul (1.5-7.7); Hematocrit 36 % (35-47); Hemoglobin 12.4 g/dL (12.0-16.0); Lymphocyte % 47.3 %; Mean Corpuscular HGB Conc 34 g/dL (31-36); Mean Corpuscular Hemoglobin 30 pg (27-31); Mean Corpuscular Volume 89 fL (80-97); Mean Platelet Volume 7.8 fL (7.4-10.4); Nucleated Red Blood Cells % 0.1; Platelet Count 302 10^3/uL (150-450); Red Blood Count 4.09 10^6 /uL (3.70-4.87); Red Cell Distribution Width 13 % (10-15); White Blood Count 7.8 10^3/uL (3.5-10.8)
[2019-06-14 03:12] LABS: INR 0.95 (0.82-1.09)
[2019-06-14 03:19] LABS: Albumin 4.6 g/dL (3.2-5.2); CO2 Carbon Dioxide 23 mmol/L (22-32); Calcium 9.6 mg/dL (8.6-10.3); Chloride 107 mmol/L (101-111); Magnesium 1.9 mg/dL (1.9-2.7); Sodium 137 mmol/L (135-145)
[2019-06-14 03:25] LABS: ALT 22 U/L (7-52); Albumin/Globulin Ratio 1.7 (1-3); Alkaline Phosphatase 89 U/L (34-104); BUN/Creatinine Ratio 14.1 (8-20); Blood Urea Nitrogen 10 mg/dL (6-24); EGFR African American 117.8 (>60); EGFR Non-African American 97.3 (>60); Globulin 2.7 g/dL (2-4); Glucose 116 mg/dL (70-100); Total Protein 7.3 g/dL (6.4-8.9)
[2019-06-14 03:29] LABS: HCG Pregnancy < 0.60 mIU/mL
[2019-06-14 03:34] LABS: Anion Gap 7 mmol/L (2-11); Potassium 4.1 mmol/L (3.5-5.0)
[2019-06-14 03:37] LABS: AST 16 U/L (13-39)
[2019-06-14 03:45] LABS: TSH (Thyroid Stimulating Horm) 4.91 mcIU/mL (0.34-5.60)
[2019-06-14 04:14] LABS: Erythrocyte Sed Rate 4 mm/Hr (0-19)
[2019-06-14 04:58] VITALS: BP 117/73
== END 2019-06-14 04:57 | disposition home or self-care (01) ==
LOC: ED 02:31
DX: F41.9 Anxiety disorder, unspecified (principal); J45.909 Unspecified asthma, uncomplicated; F32.9 Major depressive disorder, single episode, unspecified; Z87.891 Personal history of nicotine dependence; Z79.82 Long term (current) use of aspirin; Z79.899 Other long term (current) drug therapy
CPT/HCPCS: 36415; 71045; 80053; 83605; 83735; 84443; 84484; 84702; 85025; 85610; 85652; 93005; 99283

== ENCOUNTER 2019-06-22 23:46 | Emergency (ER) | payer SELFPAY ==
--- NOTE | 2019-06-23 00:10 | ED ---
HPI Chest Pain - HPI Summary HPI Summary: Patient complains of ongoing chest pain. Has been evaluated for same here at [facility] [place] on 05/28, 06/02, , 06/11, 06/14, 06/22. Admitted 05/28 with diagnosis of pericarditis. Negative CTA, negative echocardiogram. Discharged 05/29 with prescription for aspirin, colchicine and pantoprazole. Compliant with medications. Has presented multiple times for ongoing chest pain and "popping" in head. Persistent upper left-sided chest pain described as sharp stabs lasting seconds at a time, random onset. Patient has pending appointment with cardiology in a few days. Denies fever, cough, sore throat, SOB, N/3/D, abdominal pain, change in urine, change in BM. - History of Current Complaint Chief Complaint: EDChestWallPain Time Seen by Provider: 06/22/19 23:57 Hx Obtained From: Patient Onset/Duration: Started Hours Ago Timing: Intermittent, Lasting Seconds Initial Severity: Severe Current Severity: Severe Pain Intensity: 9 Pain Scale Used: 0-10 Numeric Chest Pain Location: Left Lateral Chest Pain Radiates: No Character: Sharp/Stabbing Aggravating Factor(s): Position, Movement Alleviating Factor(s): Spontaneous Resolution Associated Signs and Symptoms: Positive: Chest Pain - Allergy/Home Medications Allergies/Adverse Reactions: Allergies Allergy/AdvReac Type Severity Reaction Status Date / Time No Known Allergies Allergy Verified 05/28/19 14:30 Home Medications: Home Medications Aspirin TAB* [Aspirin 325 MG TAB*] 650 mg PO TID #21 tab 05/29/19 [Rx Confirmed 06/23/19] Colchicine* [Colcrys*] 0.6 mg PO BID #28 tab 05/29/19 [Rx Confirmed 06/23/19] Pantoprazole TAB * [Protonix TAB*] 40 mg PO BID #28 tab 05/29/19 [Rx Confirmed 06/23/19] PMH/Surg Hx/FS Hx/Imm Hx Endocrine/Hematology History: Denies: Hx Diabetes Cardiovascular History: Denies: Hx Congestive Heart Failure, Hx Hypertension, Hx Peripheral Vascular Disease Respiratory History: Reports: Hx Asthma Denies: Hx Chronic Obstructive Pulmonary Disease (COPD) Musculoskeletal History: Denies: Hx Arthritis, Hx Osteoporosis Sensory History: Denies: Hx Cataracts, Hx Contacts or Glasses, Hx Glaucoma, Hx Hearing Aid Opthamlomology History: Denies: Hx Cataracts, Hx Contacts or Glasses, Hx Glaucoma EENT History: Denies: Hx Deafness Neurological History: Denies: Hx Headaches, Hx Seizures, Hx Transient Ischemic Attacks (TIA) Psychiatric History: Reports: Hx Anxiety, Hx Depression, Hx Substance Abuse Denies: Hx Eating Disorder, Hx of Violent Episodes Against Others Infectious Disease History: No Infectious Disease History: Denies: Traveled Outside the [place] in Last 30 Days - Family History Known Family History: Positive: Unknown, Other - NEG: psychiatric issues, Non- Contributory Negative: Cardiac Disease - Social History Alcohol Use: Rare Hx Substance Use: Yes Substance Use Type: Reports: Cocaine, Marijuana Substance Use Comment - Amount & Last Used: LSD, shroom - used in the last month Hx Tobacco Use: Yes Smoking Status (MU): Former Smoker Type: Cigarettes Review of Systems Constitutional: Negative Eyes: Negative ENT: Negative Positive: Chest Pain Respiratory: Negative Gastrointestinal: Negative Genitourinary: Negative Musculoskeletal: Negative Skin: Negative Neurological/Mental Status: Negative Psychological: Normal All Other Systems Reviewed And Are Negative: Yes Physical Exam Triage Information Reviewed: Yes Vital Signs On Initial Exam: Initial Vitals Temp Pulse Resp BP Pulse Ox 98.7 F 95 18 122/78 96 06/22/19 23:47 06/22/19 23:47 06/22/19 23:47 06/22/19 23:47 06/22/19 23:47 Vital Signs Reviewed: Yes Appearance: Positive: Well-Appearing Skin: Positive: Warm Head/Face: Positive: Normal Head/Face Inspection Eyes: Positive: Normal Neck: Positive: Supple Respiratory/Lung Sounds: Positive: Clear to Auscultation Cardiovascular: Positive: Normal Abdomen Description: Positive: Nontender Musculoskeletal: Positive: Normal Neurological: Positive: Normal Psychiatric: Positive: Normal AVPU Assessment: Alert - [place] Coma Scale Best Eye Response: 4 - Spontaneous Best Motor Response: 6 - Obeys Commands Best Verbal Response: 5 - Oriented Coma Scale Total: 15 Procedures - Sedation Patient Received Moderate/Deep Sedation with Procedure: No Diagnostics - Vital Signs Vital Signs Temp Pulse Resp BP Pulse Ox 06/22/19 23:47 98.7 F 95 18 122/78 96 - Laboratory Result Diagrams: 06/23/19 00:26 06/23/19 00:26 Lab Statement: Any lab studies that have been ordered have been reviewed, and results considered in the medical decision making process. Chest Pain Course/Dx - Course Course Of Treatment: Patient complains of ongoing chest pain. Has been evaluated for same here at [facility] [place] on 05/28, 06/02, , 06/11, 06/14, 06/22. Admitted with diagnosis of pericarditis. Negative CTA, negative echocardiogram. Discharged 05/29 with prescription for aspirin, colchicine and pantoprazole. Compliant with medications. Has presented multiple times for ongoing chest pain and "popping" in head. Persistent upper left-sided chest pain described as sharp stabs lasting seconds at a time, random onset. Patient has pending appointment with cardiology in a few days. Denies fever, cough, sore throat, SOB, N/3/D, abdominal pain, change in urine, change in BM. Vital signs within normal limits. EKG sinus rhythm, heart rate of 89, normal P axis. Diminished ST elevations in lateral leads compared to prior EKG. Lactate 2.3. Labs otherwise within normal limits. 1 L normal saline administered. Patient was given aspirin and nitroglycerin by EMS. Due to multiple return visits, patient was discussed with attending Dr. Sears who agreed patient could be discharged as patient had follow-up with cardiology and multiple evaluations have been negative. Heartscore 0 - Diagnoses Provider Diagnoses: Chest wall pain, Elevated lactic acid level Discharge ED - Sign-Out/Discharge Documenting (check all that apply): Patient Departure - Discharge Plan Condition: Stable Disposition: HOME Patient Education Materials: Chest Wall Pain (ED) Referrals: No Primary Care Phys,NOPCP [Primary Care Provider] - Additional Instructions: Take ibuprofen 600 mg every 6 hours for the next 5 days. Follow-up with your pending appointment with cardiology for further evaluation. Return to the ED for any new or worsening symptoms. - Billing Disposition and Condition Condition: STABLE Disposition: Home - Attestation Statements Provider Attestation: the patient was seen by the midlevel provider, it was determined by them that it was not necessary for me to see the patient, I was available for consult during the patient's visit in the ED. I did not establish and patient-physician relationship. The chart however has been reviewed and I am signing in an administrative capacity.
[2019-06-23 00:34] LABS: ABS Eosinophils 0.4 10^3/ul (0-0.6); ABS Monocytes 0.5 10^3/ul (0-0.8); ABS Neutrophils 4.1 10^3/ul (1.5-7.7); Hematocrit 34 % (35-47); Hemoglobin 11.7 g/dL (12.0-16.0); Lymphocyte % 37.4 %; Mean Corpuscular HGB Conc 35 g/dL (31-36); Mean Corpuscular Hemoglobin 31 pg (27-31); Mean Corpuscular Volume 89 fL (80-97); Mean Platelet Volume 7.3 fL (7.4-10.4); Nucleated Red Blood Cells % 0.2; Platelet Count 286 10^3/uL (150-450); Red Cell Distribution Width 13 % (10-15)
[2019-06-23 00:51] LABS: Albumin 4.4 g/dL (3.2-5.2); Albumin/Globulin Ratio 1.7 (1-3); BUN/Creatinine Ratio 16.9 (8-20); C Reactive Protein 3.35 mg/L (<8.01); Calcium 9.5 mg/dL (8.6-10.3); EGFR African American 107.2 (>60); EGFR Non-African American 88.6 (>60); Globulin 2.6 g/dL (2-4); Total Bilirubin 0.2 mg/dL (0.2-1.0)
[2019-06-23] MEDS ORDERED: NS 0.9% 1000 ML** 1,000 ML IV ONE (01:10)
[2019-06-23 01:52] LABS: Potassium 3.7 mmol/L (3.5-5.0)
[2019-06-23 02:20] VITALS: BP 124/82
== END 2019-06-23 02:19 | disposition home or self-care (01) ==
LOC: ED 23:46
DX: R07.89 Other chest pain (principal); R74.0 Nonspecific elevation of levels of transaminase and lactic acid dehydrogenase [LDH]; Z87.891 Personal history of nicotine dependence; F41.9 Anxiety disorder, unspecified; F32.9 Major depressive disorder, single episode, unspecified; Z79.82 Long term (current) use of aspirin; Z79.899 Other long term (current) drug therapy
CPT/HCPCS: 36415; 80053; 83605; 84484; 85025; 86140; 93005; 96360; 99283

== ENCOUNTER 2019-07-13 23:44 | Emergency (ER) | payer SELFPAY ==
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
--- OUTSIDE RECORDS SUMMARY | 2019-07-14 00:02 | XMS REPORT | Continuity of Care Document ---
:1990 External Reference #:[id number] Author Name Soraida Ordoñez Care Team Providers Name Role Phone Unavailable Care Team Information Solar Engineer Unavailable Pio Rashid MD - Hospitalist Care Team Information Solar Engineer [phone] Problems Active Problems Provider Date Altered mental [...] kg/m2 Procedures Date Code Description Status 05/29/2019 77382 ECHO Transthorasic Realtime 2D W Doppler & Color Flow Hosp Completed Medical Devices Description No Information Available Encounters Type Date Location Provider Dx Diagnosis Office Visit 06/10/2019 [facility] Internal Pio Rashid MD I30.9 Acute pericarditis, 1:00p Medicine - Suite R unspecified R20.0 Anesthesia of skin R35.1 Nocturia Z13.1 Encounter for screening for diabetes mellitus R42 Dizziness and giddiness Office Visit 05/29/2019 10:10a [facility] Erin Haskins MD 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 at [facility] Slkfdj8406/10/2019 - Pio Rashid MDI30.9 Acute pericarditis, unspecifiedReferral:Tanya Gibbs MD, Cardiovsclr RgyhznbO00.0 Anesthesia of skinComments:restart your vitamin D.R35.1 RjruwryqP87.1 Encounter for screening for diabetes [id number] Dizziness and giddinessComments:Likely related to both your concussion and the pericarditis. Functional Status Description No Information Available Mental Status Description No Information Available Referrals Refer to Dr Reason for Referral Status Appt Date Tanya Gibbs MD pericarditis, pre-syncopal Sent 06/25/[address] [place] [address] [phone]
--- OUTSIDE RECORDS SUMMARY | 2019-07-14 00:02 | XMS REPORT | Continuity of Care Document ---
:1990 External Reference #:[id number] Author Name Soraida Ordoñez Care Team Providers Name Role Phone Unavailable Care Team Information Division Officer [employer]apons Department Unavailable Pio Rashid MD - Hospitalist Care Team Information Division Officer Weapons Department [phone] Problems Active Problems Provider Date Altered mental [...] kg/m2 Procedures Date Code Description Status 05/29/2019 86969 ECHO Transthorasic Realtime 2D W Doppler & Color Flow Hosp Completed Medical Devices Description No Information Available Encounters Type Date Location Provider Dx Diagnosis Office Visit 06/10/2019 [facility] Internal Pio Rashid MD I30.9 Acute pericarditis, 1:00p Medicine - Suite R unspecified R20.0 Anesthesia of skin R35.1 Nocturia Z13.1 Encounter for screening for diabetes mellitus R42 Dizziness and giddiness Office Visit 05/29/2019 10:10a [facility] Erin Haskins MD 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 skin R51 Headache R41.82 Altered mental status, unspecified Assessments Date Code Description Provider 06/10/2019 I30.9 Acute pericarditis, unspecified Pio Rashid MD 06/10/2019 R20.0 Anesthesia of skin Pio Rashid MD 06/10/2019 R35.1 Nocturia Pio Rsahid MD 06/10/2019 Z13.1 Encounter for screening for diabetes Pio Rashid MD mellitus 06/10/2019 R42 Dizziness and giddiness Pio Rashid MD 05/29/2019 R55 Syncope and collapse Milo Toledo, DO [facility] 05/29/2019 I51.4 Myocarditis, unspecified Erin Haskins MD [...] am - Marcelino Yee M.D. at [facility] Pjxkjc9306/10/2019 - Pio Rashid MDI30.9 Acute pericarditis, unspecifiedReferral:Tanya Gibbs MD, Cardiovsclr HdmvjifJ80.0 Anesthesia of skinComments:restart your vitamin D.R35.1 TgsnrznbS58.1 Encounter for screening for diabetes colwonyhG79 Dizziness and giddinessComments:Likely related to both your concussion and the pericarditis. Functional Status Description No Information Available Mental Status Description No Information Available Referrals Refer to Dr Reason for Referral Status Appt Date Tanya Gibbs MD pericarditis, pre-syncopal Sent 06/25/[address] [place] [address] [phone]
--- OUTSIDE RECORDS SUMMARY | 2019-07-14 00:02 | XMS REPORT | Continuity of Care Document ---
:1990 External Reference #:[id number] Author Name Soraida Ordoñez Care Team Providers Name Role Phone Unavailable Care Team Information Professional Golf Tournament Player Unavailable Pio Rashid MD - Hospitalist Care Team Information Professional Golf Tournament Player [phone] Problems Active Problems Provider Date Altered mental [...] kg/m2 Procedures Date Code Description Status 05/29/2019 80703 ECHO Transthorasic Realtime 2D W Doppler & Color Flow Hosp Completed Medical Devices Description No Information Available Encounters Type Date Location Provider Dx Diagnosis Office Visit 06/10/2019 [facility] Internal Pio Rashid MD I30.9 Acute pericarditis, 1:00p Medicine - Suite R unspecified R20.0 Anesthesia of skin R35.1 Nocturia Z13.1 Encounter for screening for diabetes mellitus R42 Dizziness and giddiness Office Visit 05/29/2019 10:10a [facility] Erin Haskins MD I51.4 Myocarditis, Assoc,pc unspecified Hospitalists R51 Headache J45.909 Unspecified asthma, uncomplicated Office Visit 05/28/2019 [facility] Reina Pozo I31.9 Disease of 10:10a Assoc,livan Ball.DAndrade pericardium, Hospitalists unspecified Office Visit 04/23/2019 [facility] Junior[facility] R20.2 Paresthesia of 10:00a Services [...] R55 Syncope and collapse Milo Toledo, DO [facility] 05/29/2019 I51.4 Myocarditis, unspecified Erin Haskins MD [...] am - Marcelino Yee M.D. at [facility] Hhdcqs6006/10/2019 - Pio Rashid MDI30.9 Acute pericarditis, unspecifiedReferral:Tanya Gibbs MD, Cardiovsclr CxabgtjM07.0 Anesthesia of skinComments:restart your vitamin D.R35.1 OzpaxixcQ06.1 Encounter for screening for diabetes pbagfifwD37 Dizziness and giddinessComments:Likely related to both your concussion and the pericarditis. Functional Status Description No Information Available Mental Status Description No Information Available Referrals Refer to Dr Reason for Referral Status Appt Date Tanya Gibbs MD pericarditis, pre-syncopal Sent 06/25/[address] [place] [address] [phone]
--- OUTSIDE RECORDS SUMMARY | 2019-07-14 00:02 | XMS REPORT | Summary of Care ---
:1990 Author Organization [facility] Address [address] [facility] [place] [address] Care Team Providers Name Role Phone Mario Bradshaw Primary Care Provider Reason for Referral MRI/CAT/PET Scan (Routine) Status Reason Specialty Diagnoses / Referred By Referred To Procedures Contact Contact Authorized Diagnoses Breast pain, left Mario Bradshaw MD Procedures US BREAST COMPLETE LEFT [address] [place] [address] Reason for Visit Reason Comments Follow Up not seeing neuro, saw child center assistant at [facility] (07/23), areas with PCP dx no cardiac issue noted. Abdominal Pain seen in clinic on 07/07; pain increased on 08/04 unable to eat anything d/t increased pain; endoscopy yesturday at [facility]; Encounter Details Date Type Department Care Team Description 07/10/2019 Office Visit [facility] Mario Bradshaw MD Breast pain, left (Primary Dx); Practice [address] [facility] Breast pain [address] [place] [address] [place] [address] [phone] Allergies No Known Allergiesdocumented as of this encounter (statuses as of 07/10/2019) Medications Medication Sig Dispensed Refills Start Date End Date Status ibuprofen Take 600 mg 0 Active (MOTRIN) 600 MG by mouth Oral Tab EVERY SIX HOURS NEEDED for Pain. Omeprazole 40 MG Take 1 Cap 30 Cap 0 07/08/2019 07/10/2019 Discontinued Oral CAPSULE by mouth (Patient stopped DELAYED DAILY. the medication) RELEASEIndicatio ns: Epigastric pain documented as of this encounter (statuses as of 07/10/2019) Active Problems Problem Noted Date 9 weeks gestation of 07/10/2019 Encntr screen for dis of the bld/bld-form org/immun mechnsm 07/10/2019 Encntr screen for infections w sexl mode of transmiss 07/10/2019 Encounter for elective termination of 07/10/2019 Encounter for other general counseling and advice on contraception 07/10/2019 Encounter for test, result positive 07/10/2019 Trichomonal vulvovaginitis 07/10/2019 Weeks of gestation of not specified 07/10/2019 Brain concussion 04/30/2019 Cracked tooth 04/30/2019 Encounter for screening for human immunodeficiency virus (HIV) 10/15/2016 Human immunodeficiency virus (HIV) counseling 10/15/2016 RhD negative 06/09/2015 documented as of this encounter (statuses as of 07/10/2019) Immunizations Name Administration Dates Next Due TDAP Vaccine 04/29/2008 documented as of this encounter Social History Tobacco Use Types Packs/Day Years Used Date Former Smoker Smokeless Tobacco: Never Used Alcohol Use Drinks/Week oz/Week Comments Yes Alcohol Habits Answer Date Recorded How often do you have a drink containing alcohol? Monthly or less 06/24/2019 How many drinks containing alcohol do you have on a 1 or 2 06/24/2019 typical day when you are drinking? How often do you have six or more drinks on one Never 06/24/2019 occasion? Sex Assigned at Date Recorded Not on file documented as of this encounter Last Filed Vital Signs Vital Sign Reading Time Taken Comments Blood Pressure 122/58 07/10/2019 10:45 AM EDT Pulse 104 07/10/2019 10:45 AM EDT Temperature - - Respiratory Rate - - Oxygen Saturation 98% 07/10/2019 10:45 AM EDT Inhaled Oxygen Concentration - - Weight 87.5 kg (193 lb) 07/10/2019 10:45 AM EDT Height 165.1 cm (5' 5") 07/10/2019 10:45 AM EDT Body Mass Index 32.12 07/10/2019 10:45 AM EDT documented in this encounter Patient Instructions Patient InstructionsMario Bradshaw MD - 07/10/2019 10:20 AM EDTSchedule Mammogram and breast ultrasound Follow up with me in one month.Electronically signed by Mario Bradshaw MD at 11:20 AM EDT documented in this encounter Progress Notes Mario Bradshaw MD - 07/10/2019 10:20 AM EDT PATIENT: Jessica Tsai : 1990 DATE OF SERVICE: 07/10/2019 CHIEF COMPLAINT: Chief Complaint Patient presents with ? Follow Up not seeing neuro, saw child center assistant at [facility] (07/23), areas with PCP dx no cardiac issue noted. ? Abdominal Pain seen in clinic on 07/07; pain increased on 08/04 unable to eat anything d/t increased pain; endoscopy[facility]urday at [facility]; Subjective HISTORY OF PRESENT ILLNESS: Jessica Tsai is a 29-y.o. female. Pt here for follow up. Seen yesterday by GI for Endoscopy but the stomach pain is now resolved. Seenby Cardiology and reportedly told they believe her chest pain is costochondral in nature--there is no cardiac cause for her pain s/p pericarditis hospitalization. She has an appointment with Neurology in August to look at her head bubbling sensation. This is unchanged from previous visit. Pt reassured bywork-up to date but she does state the chest pain remains. To the left side of the anterior chest and is very specific/reproducible. Notes no specific trauma to the area. Does not appear to change withher menstrual cycle, with cough, breathing. Pt notes it does hurt except if there is direct pressure. History reviewed. No pertinent past medical history. History reviewed. No pertinent family history. Current Outpatient Medications Medication Sig ? ibuprofen (MOTRIN) 600 MG Oral Tab Take 600 mg by mouth EVERY SIX HOURS NEEDED for Pain. No current facility-administered medications for this visit. No Known Allergies Social History Socioeconomic History ? Marital status: Single Spouse name: Not on file ? Number of children: Not on file ? Years of education: Not on file ? Highest education level: Not on file Occupational History ? Not on file Social Needs ? Financial resource strain: Not on file ? Food insecurity Worry: Not on file Inability: Not on file ? Transportation needs Medical: Not on file Non-medical: Not on file Tobacco Use ? Smoking status: Former Smoker ? Smokeless tobacco: Never Used Substance and Sexual Activity ? Alcohol use: Yes Frequency: Monthly or less Drinks per session: 1 or 2 Binge frequency: Never ? Drug use: Not Currently Types: Marijuana ? Sexual activity: Not Currently Lifestyle ? Physical activity Days per week: Not on file Minutes per session: Not on file ? Stress: Not on file Relationships ? Social connections Talks on phone: Not on file Gets together: Not on file Attends judaism service: Not on file Active member of club or organization: Not on file Attends meetings of clubs or organizations: Not on file Relationship status: Not on file ? Intimate partner violence Fear of current or ex partner: Not on file Emotionally abused: Not on file Physically abused: Not on file Forced sexual activity: Not on file Other Topics Concern ? Not on file Social History Narrative ? Not on file REVIEW OF SYSTEMS: Review of Systems Constitutional: Negative for chills, diaphoresis, fever, malaise/fatigue and weight loss. Respiratory: Negative for cough, sputum production, shortness of breath and wheezing. Cardiovascular: Positive for chest pain. Negative for palpitations, orthopnea, claudication, leg swelling and PND. Gastrointestinal: Negative for abdominal pain, blood in stool, constipation, diarrhea, heartburn, nausea and vomiting. Genitourinary: Negative for dysuria, flank pain, frequency and urgency. Neurological: Positive for dizziness. Negative for headaches. Psychiatric/Behavioral: Negative for depression and suicidal ideas. The patient is not nervous/anxious and does not have insomnia. Objective PHYSICAL EXAM: VITALS: BP 122/58 (BP Location: Left arm, Patient Position: Sitting) | Pulse 104 | Ht 5' 5" (1.651 m) | Wt 193 lb (87.5 kg) | LMP 06/24/2019 (Exact Date) | SpO2 98% | BMI 32.12 kg/m Body mass index is 32.12 kg/m. Physical Exam Vitals signs and nursing note reviewed. Exam conducted with a cmm technician present. Constitutional: General: She is not in acute distress. Appearance: She is well-developed. She is not ill-appearing, toxic-appearing or diaphoretic. HENT: Head: Normocephalic and atraumatic. Nose: Nose normal. Mouth/Throat: Mouth: Mucous membranes are moist. Pharynx: Oropharynx is clear. No oropharyngeal exudate. Eyes: General: No scleral icterus. Right eye: No discharge. Left eye: No discharge. Conjunctiva/sclera: Conjunctivae normal. Pupils: Pupils are equal, round, and reactive to light. Neck: Musculoskeletal: Normal range of motion. Thyroid: No thyromegaly. Cardiovascular: Rate and Rhythm: Normal rate and regular rhythm. Heart sounds: Normal heart sounds. No murmur. No friction rub. No gallop. Pulmonary: Effort: Pulmonary effort is normal. No respiratory distress. Breath sounds: Normal breath sounds. No wheezing, rhonchi or rales. Chest: Chest wall: Tenderness present. Breasts: Right: Normal. No tenderness. Left: Mass and tenderness present. No swelling, bleeding, inverted nipple , nipple discharge orskin change. Comments: + Fibrocystic changes in bilateral breast with tenderness in the areas noted. The area was a consolidated cluster of FCD or chronic friction changes due to underwire bra inferiorly. Musculoskeletal: Normal range of motion. General: No tenderness. Lymphadenopathy: Cervical: No cervical adenopathy. Upper Body: Right upper body: No supraclavicular or axillary adenopathy. Left upper body: No supraclavicular or axillary adenopathy. Skin: Findings: No erythema or rash. Neurological: General: No focal deficit present. Mental Status: She is alert and oriented to person, place, and time. Psychiatric: Mood and Affect: Mood normal. Behavior: Behavior normal. ASSESSMENT / IMPRESSION: 1. Breast pain, left Pt has a tender collection of likely breast tissue on the left anterior/ superior chest wall. By palpation, it appears to be Fibrocystic changes but will need to evaluate. - MAMMO DIGITAL DIAGNOSTIC BILATERAL; Future - US BREAST COMPLETE LEFT; Future Plan F/u with me with results of the testing. Author: Mario Bradshaw MD 07/10/2019 10:46 documented in this encounter Plan of Treatment Date Type Specialty Care Team Description 07/20/2019 Ancillary Procedure Radiology 07/20/2019 Ancillary Procedure Radiology 08/12/2019 Office Visit Family Practice Mario Bradshaw MD [address] [place] [address] [phone] 09/01/2019 Office Visit Neurology - Neurology Leighton Greene CRNP [employer] [address] [place] [address] [phone] Name Type Priority Associated Diagnoses Order Schedule MAMMO DIGITAL DIAGNOSTIC Imaging Routine Breast pain, left Expected: 2019, BILATERAL Expires: 10/07/2020 US BREAST COMPLETE LEFT Imaging Routine Breast pain, left Expected: 2019, Expires: 10/09/2020 Health Maintenance Due Date Last Done Comments HIV SCREENING 2005 PAP SMEAR 2011 DTaP/Tdap/Td Vaccines (2 - Tdap) 04/29/2018 04/29/2008 DEPRESSION SCREENING 06/24/2020 06/24/2019 INFLUENZA VACCINE (#1) 2020 Postponed from 12/28/2018 (Patient refused) HEPATITIS A IMMUNIZATION SERIES Aged Out No longer eligible based on patient's age to complete this topic HPV IMMUNIZATION SERIES Aged Out No longer eligible based on patient's age to complete this topic MENINGOCOCCAL VACCINE IMM Aged Out No longer eligible based on patient's age to complete this topic PNEUMOCOCCAL 0-64 YRS Aged Out No longer eligible based on patient's age to complete this topic documented as of this encounter Results Not on filedocumented in this encounter Visit Diagnoses Diagnosis Breast pain Mastodynia Breast pain, left Mastodynia documented in this encounter
--- OUTSIDE RECORDS SUMMARY | 2019-07-14 00:02 | XMS REPORT | Continuity of Care Document ---
:1990 External Reference #:[id number] Author Name Soraida Ordoñez Care Team Providers Name Role Phone Unavailable Care Team Information Pastoral Counselor Unavailable Pio Rashid MD - Hospitalist Care Team Information Pastoral Counselor [phone] Problems Active Problems Provider Date Altered mental [...] kg/m2 Procedures Date Code Description Status 05/29/2019 89309 ECHO Transthorasic Realtime 2D W Doppler & Color Flow Hosp Completed Medical Devices Description No Information Available Encounters Type Date Location Provider Dx Diagnosis Office Visit 06/10/2019 [facility] Internal Pio Rashid MD I30.9 Acute pericarditis, 1:00p Medicine - Suite R unspecified R20.0 Anesthesia of skin R35.1 Nocturia Z13.1 Encounter for screening for diabetes mellitus R42 Dizziness and giddiness Office Visit 05/29/2019 10:10a [facility] Erin Haskins MD I51.4 Myocarditis, Assoc,pc unspecified Hospitalists R51 Headache J45.909 Unspecified asthma, uncomplicated Office Visit 05/28/2019 [facility] Reina Pozo I31.9 Disease of 10:10a Assoc,livan Ball.DAndrade pericardium, Hospitalists unspecified Office Visit 04/23/2019 [facility] Junioropher R20.2 Paresthesia of 10:00a Services [...] R55 Syncope and collapse Milo [place], DO [facility] 05/29/2019 I51.4 Myocarditis, unspecified Erin Haskins MD [...] am - Marcelino Yee M.D. at [facility] Geuyxx9306/10/2019 - Pio Rashid MDI30.9 Acute pericarditis, unspecifiedReferral:Tanya Gibbs MD, Cardiovsclr GnkafryL12.0 Anesthesia of skinComments:restart your vitamin D.R35.1 AaiazsnuR41.1 Encounter for screening for diabetes fzwifrowN48 Dizziness and giddinessComments:Likely related to both your concussion and the pericarditis. Functional Status Description No Information Available Mental Status Description No Information Available Referrals Refer to Dr Reason for Referral Status Appt Date Tanya Gibbs MD pericarditis, pre-syncopal Sent 06/25/[address] [place] [address] [phone]
--- OUTSIDE RECORDS SUMMARY | 2019-07-14 00:02 | XMS REPORT | Summary of Care ---
:1990 Author Organization [facility] Address [address] [address] Care Team Providers Name Role Phone Mario Bradshaw Primary Care Provider Reason for Referral Refer to Department Only (Routine) Status Reason Specialty Diagnoses / Referred By Referred To Procedures Contact Contact Authorized Gastroenterology Diagnoses Epigastric pain Vic Block, PA Gastroenterology [address] [facility] /Hepatology [place] [id number] [address] [facility] Phone: Road [phone] [place] [phone] Fax: Scheduling Instructions BP 118/84 (BP Location: Left arm, Patient Position: Sitting) | Pulse 66 | Temp 98.4 F (36.9 C) (Tympanic) | Ht 5' 5" (1.651 m) | Wt 186 lb (84.4 kg) | LMP 06/24/2019 ( Exact Date) | SpO2 98% | BMI 30.95 kg/m BMI Readings from Last 4 Encounters: 07/08/19 : 30.95 kg/m 06/24/19 : 31.22 kg/m Controlled Substance Medications: Anticoagulant Medications: Psychiatric/Antianxiety Medications: Antiretroviral Medications: Reason for Visit Reason Comments Check Up Since Saturday she can't eat w/o pain, when she's hungry she feels pain , she said she can feel acid down there Encounter Details Date Type Department Care Team Description 07/08/2019 Office Visit [place] [facility] Vic Block, Epigastric pain Medicine PA (Primary Dx) [address] [facility] [address] [place] [address] [place] [address] [phone] Allergies No Known Allergiesdocumented as of this encounter (statuses as of 07/08/2019) Medications Medication Sig Dispensed Refills Start Date End Date Status ibuprofen (MOTRIN) 600 Take 600 mg by 0 Active MG Oral Tab mouth EVERY SIX HOURS NEEDED for Pain. Omeprazole 40 MG Oral Take 1 Cap by 30 Cap 0 07/08/2019 Active CAPSULE DELAYED mouth DAILY. RELEASEIndications: Epigastric pain documented as of this encounter (statuses as of 07/08/2019) Active Problems No known active problemsdocumented as of this encounter (statuses as of 2019) Social History Tobacco Use Types Packs/Day Years [...] Sign Reading Time Taken Comments Blood Pressure 118/84 07/08/2019 11:04 AM EDT Pulse 66 07/08/2019 11:04 AM EDT Temperature 36.9 07/08/2019 11:04 AM EDT C (98.4 F) Respiratory Rate - - Oxygen Saturation 98% 07/08/2019 11:04 AM EDT Inhaled Oxygen Concentration - - Weight 84.4 kg (186 lb) 07/08/2019 11:04 AM EDT Height 165.1 cm (5' 5") 07/08/2019 11:04 AM EDT Body Mass Index 30.95 07/08/2019 11:04 AM EDT documented in this encounter Patient Instructions Patient InstructionsVic Block PA - 07/08/2019 11:00 AM EDTPatient Education [place] Diet About this topic A bland diet is made up of foods which are soft, not spicy, cooked, low in fat, and low in fiber. These foods are not likely to upset the GI tract. What will the results be? This diet will not make your stomach upset. This diet will help you get nutrients while you do not feel well. What changes to diet are needed? Eat small meals more often during the day. Avoid large meals. Stay away from spicy or seasoned foods or other foods that should be avoided. Stay away from fatty foods, like fried foods and high-fat dairy products. Limit citrus and tomato products if heartburn is an issue. Eat slowly and chew your food carefully. Drink fluids slowly. Do not eat for at least 2 hours before going to bed. Who should use this diet? People with ulcers, heartburn, upset stomach, gas, loose stools, or throwing up should eat a bland diet. What foods are good to eat? Low-fat milk and other dairy products Cooked, canned, or frozen vegetables Fruit and vegetable juices if heartburn is not an issue Cooked or canned fruit with no skin or seeds, like applesauce Bananas Breads, crackers, and pasta made with white flour Hot cereals like oatmeal or cream of wheat Lean, tender meats that are steamed, baked, or grilled with no added fat Creamy peanut butter Pudding and custard Eggs Tofu Soup and broth Weak tea Drinks without caffeine What foods should be limited or avoided? Full-fat dairy foods, like whole milk Raw vegetables Strong cheese, like shanna cheese Vegetables that can cause gas like broccoli, cabbage, and [place] sprouts Tomatoes and citrus fruits if heartburn is an issue Fresh or dried fruits (besides bananas) Whole grain or bran cereals, bread, crackers, or pasta Fried pastries, such as donuts Pickles, sauerkraut, and similar foods Spices like hot pepper and garlic Foods with a lot of sugar or honey in them Seeds and nuts Meat or fish that has been seasoned or cured, like sardines and de jesus Fried foods Chocolate Beer, wine, and mixed drinks (alcohol) Peppermint flavored foods and drinks Drinks with caffeine When do I need to call the doctor? You are not feeling better in 2 to 3 days or you are feeling worse If you have questions about your diet Signs of fluid loss. These include dark-colored urine or no urine for more than 8 hours, dry mouth, cracked lips, sunken eyes, lack of energy, feeling faint, or passing out. Last Reviewed Date 2019-01-08 Consumer Information Use and Disclaimer This information is not specific medical advice and does not replace information you receive from your health care provider. This is only a brief summary of general information. It does NOT include allinformation about conditions, illnesses, injuries, tests, procedures, treatments, therapies, discharge instructions or life-style choices that may apply to you. You must talk with your health care provider for complete information about your health and treatment options. This information should not beused to decide whether or not to accept your health care provider?s advice, instructions or recommendations. Only your health care provider has the knowledge and training to provide advice that is right for you. Copyright Copyright 2019 [employer] and its affiliates and/or licensors. All rights reserved. documented in this encounter Progress Notes Vic Block PA - 07/08/2019 11:00 AM EDT PATIENT: Jessica Tsai : 1990 DATE OF SERVICE: 07/08/2019 CHIEF COMPLAINT: Chief Complaint Patient presents with ? Check Up Since Saturday she can't eat w/o pain, when she's hungry she feels pain, she said she can feel acid down there Subjective HISTORY OF PRESENT ILLNESS: Jessica Tsai is a 29-y.o. female. Jessica Tsai is a 29-y.o. female who presents with abdominal pain. The pain is described as burning and sharp, and is moderate. Pain is located in the epigastric without radiation. Onset was a few days ago. Symptoms have been gradually worsening since. Aggravating factors: eating, spicy foods, fatty foods, hot liquids and NSAID's. Alleviating factors: none. Associated symptoms: nausea. The patient denies constipation, diarrhea, hematochezia, hematemesis, melena and vomiting. History reviewed. No pertinent past medical history. History reviewed. No pertinent family history. Current Outpatient Medications Medication Sig ? ibuprofen (MOTRIN) 600 MG Oral Tab Take 600 mg by mouth EVERY SIX HOURS NEEDED for Pain. ? Omeprazole 40 MG Oral CAPSULE DELAYED RELEASE Take 1 Cap by mouth DAILY. No current facility-administered medications for this visit. [...] file Gets together: Not on file Attends holiness service: Not on file Active member of [...] Review of Systems Constitutional: Negative for chills, fever and malaise/fatigue. HENT: Negative for congestion, sinus pain and sore throat. Respiratory: Negative for cough, sputum production, shortness of breath and wheezing. Cardiovascular: Negative for chest pain, palpitations and leg swelling. Gastrointestinal: Positive for abdominal pain, heartburn and nausea. Negative for blood in stool, constipation, diarrhea, melena and vomiting. Genitourinary: Negative for flank pain, frequency and hematuria. Musculoskeletal: Negative for myalgias and neck pain. Neurological: Negative for dizziness, tingling, tremors, weakness and headaches. Objective PHYSICAL EXAM: VITALS: BP 118/84 (BP Location: Left arm, Patient Position: Sitting) | Pulse 66 | Temp 98.4 F(36.9 C) (Tympanic) | Ht 5' 5" (1.651 m) | Wt 186 lb (84.4 kg) | LMP 06/24/2019 (Exact Date)| SpO2 98% | BMI 30.95 kg/m Body mass index is 30.95 kg/m. Physical Exam Vitals signs and nursing note reviewed. Constitutional: General: She is not in acute distress. Cardiovascular: Rate and Rhythm: Normal rate and regular rhythm. Heart sounds: No murmur. No friction rub. No gallop. Pulmonary: Effort: Pulmonary effort is normal. Breath sounds: No wheezing, rhonchi or rales. Abdominal: General: Abdomen is flat. Bowel sounds are normal. There is no distension. Palpations: Abdomen is soft. There is no mass. Comments: Complains of mild, aching tenderness to palpation of the epigastric region. Musculoskeletal: Right lower leg: No edema. Left lower leg: No edema. Skin: General: Skin is warm and dry. Coloration: Skin is not jaundiced. Neurological: Mental Status: She is alert. ASSESSMENT / IMPRESSION: ICD-9-CM ICD-10-CM 1. Epigastric pain 789.06 R10.13 REFER TO GI Omeprazole 40 MG Oral CAPSULE DELAYED RELEASE I am concerned that his epigastric pain is secondary to ulceration as result of aggressive use of aspirin and ibuprofen. Because of this, I have discussed with gastroenterology the urgency for endoscopy and will be scheduling her for EGD tomorrow morning. Patient will be notified of results of EGD, and further treatment will be advised. Until then, educated on a soft diet and not 12 hours before procedure. Along with this, she will start the omeprazole today and H. Pylori testing tomorrow will indicated the need for antibiotic therapy. I spent 35 minutes with the patient, greater than half of this in direct face to face counseling addressing the current condition and the plan of care. Author: OSIRIS Gonsalves 07/08/2019 17:08 documented in this encounter Plan of Treatment Date Type Specialty Care Team Description 07/09/2019 GI Procedure Gastroenterology Deana Martinez MD [address] [place] [address] [phone] 07/10/2019 Office Visit Family Practice Mario Bradshaw MD [address] [place] [address] [phone] 09/01/2019 Office Visit Neurology - Neurology [facility] [employer] [address] [address] [phone] Name Type Priority Associated Diagnoses Order Schedule REFER TO GI Referral Routine Epigastric pain Expected: 07/08/2019, Expires: 07/07/2020 Health Maintenance Due Date Last Done Comments DTaP/Tdap/Td Vaccines (1 - Tdap) 2001 HIV SCREENING 2005 PAP SMEAR 2011 DEPRESSION SCREENING 06/24/2020 06/24/2019 INFLUENZA VACCINE (#1) [...] filedocumented in this encounter Visit Diagnoses Diagnosis Epigastric pain Abdominal pain, epigastric documented in this encounter
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
[2019-07-14] MEDS ORDERED: Iohexol 300* (CONTRAST) 10 ML SDV IV ONE (02:28)
[2019-07-14 03:45] VITALS: BP 126/97
== END 2019-07-14 03:44 | disposition home or self-care (01) ==
LOC: ED 23:44
DX: N83.201 Unspecified ovarian cyst, right side (principal); R10.9 Unspecified abdominal pain; R11.2 Nausea with vomiting, unspecified; Z87.891 Personal history of nicotine dependence; K76.0 Fatty (change of) liver, not elsewhere classified; J45.909 Unspecified asthma, uncomplicated
CPT/HCPCS: 74177; 99282; Q9967